=== PATIENT | female | born 1935 | race Caucasian/White ===

== ENCOUNTER 2020-04-15 12:12 | Day surgery (SDC) | payer MEDICARE ==
[2020-04-15] MEDS ORDERED: LIDOCAINE HCL 2% 100 MG/5 ML IJ ONE (12:13)
[2020-04-15] MEDS ORDERED: Depo-Medrol 40 MG/ML IM ONE (12:13)
[2020-04-15] MEDS ORDERED: DIPRIVAN 200 MG/20 ML IV ONE (13:47)
[2020-04-15] MEDS ORDERED: Ketamine HCl 50 MG/ML ONE (13:48)
--- NOTE | 2020-04-15 15:04 | XRAY ---
Indication: Bilateral L4-S1 MBB. Intraoperative fluoroscopy was provided 16 seconds. Single digital spot image submitted for interpretation demonstrates posterior needle tips projecting over the expected left and right L4-S1 nerve roots. Correlate with intraoperative findings/report.
--- NOTE | 2020-04-15 15:06 | XRAY ---
16 seconds of fluoroscopy was used in surgery for a bilateral L4-L5 and L5-S1 MBB.
[2020-04-15] MEDS ORDERED: Lactated Ringers 1,000 ML IV ONE (15:44)
== END 2020-04-15 14:15 | disposition home or self-care (01) ==
LOC: SDC-PAIN 12:12
PROVIDERS: ATTEND Psychiatry & Neurology Pain Medicine
DX: M47.816 Spondylosis without myelopathy or radiculopathy, lumbar region (principal); J44.9 Chronic obstructive pulmonary disease, unspecified; I10 Essential (primary) hypertension; I25.10 Atherosclerotic heart disease of native coronary artery without angina pectoris; F41.9 Anxiety disorder, unspecified; Z79.899 Other long term (current) drug therapy
CPT/HCPCS: 64493; 64494; 72020; 77002; J1030; J2704

== ENCOUNTER 2020-05-13 12:12 | Day surgery (SDC) | payer MEDICARE ==
[2020-05-13] MEDS ORDERED: Depo-Medrol 40 MG/ML IM ONE (12:13)
[2020-05-13] MEDS ORDERED: BUPIVACAINE 0.5% VIAL IJ ONE (12:13)
[2020-05-13] MEDS ORDERED: Ketamine HCl 50 MG/ML ONE ×2 (12:52→13:23)
[2020-05-13] MEDS ORDERED: DIPRIVAN 200 MG/20 ML IV ONE ×2 (12:52→13:23)
--- NOTE | 2020-05-13 15:06 | XRAY ---
Indication: Bilateral L4-S1 MBB. Intraoperative fluoroscopy was provided for 8 seconds. Single digital spot image submitted for interpretation demonstrates posterior needle tips projecting over the expected left and right L4-S1 nerve roots. Correlate with intraoperative findings/report.
[2020-05-13] MEDS ORDERED: Lactated Ringers 1,000 ML IV ONE (16:06)
--- NOTE | 2020-05-13 16:58 | XRAY ---
8 seconds fluoroscopy time in surgery for bilateral L4-S1 MBB.
== END 2020-05-13 13:40 | disposition home or self-care (01) ==
LOC: SDC-PAIN 12:12
PROVIDERS: ATTEND Psychiatry & Neurology Pain Medicine
DX: M47.816 Spondylosis without myelopathy or radiculopathy, lumbar region (principal); I10 Essential (primary) hypertension; J44.9 Chronic obstructive pulmonary disease, unspecified; I25.10 Atherosclerotic heart disease of native coronary artery without angina pectoris; Z79.899 Other long term (current) drug therapy; F41.8 Other specified anxiety disorders
CPT/HCPCS: 64493; 64494; 72020; 77002; J1030; J2704

== ENCOUNTER 2020-08-05 15:10 | Day surgery (SDC) | payer MEDICARE | END 2020-08-05 15:30 | disposition home or self-care (01) | LOC: SDC-PAIN 15:10 | PROVIDERS: ATTEND Psychiatry & Neurology Pain Medicine | DX: Z53.9 Procedure and treatment not carried out, unspecified reason (principal) ==

== ENCOUNTER 2020-08-26 10:44 | Day surgery (SDC) | payer MEDICARE ==
[2020-08-26] MEDS ORDERED: Depo-Medrol 40 MG/ML IM ONE (10:45)
[2020-08-26] MEDS ORDERED: BUPIVACAINE 0.5% VIAL IJ ONE (10:45)
[2020-08-26] MEDS ORDERED: Xylocaine 1% Vial 30 ML PF IJ ONE (10:45)
[2020-08-26] MEDS ORDERED: Ketamine HCl 50 MG/ML ONE (11:54)
[2020-08-26] MEDS ORDERED: DIPRIVAN 200 MG/20 ML IV ONE (11:54)
--- NOTE | 2020-08-26 12:52 | XRAY ---
Indication: Right L4-S1 RFA. Intraoperative fluoroscopy provided for 29 seconds. 4 digital spot images submitted for interpretation demonstrates posterior needle tips projecting over the expected right L4-S1 nerve roots. Correlate with intraoperative findings/report.
--- NOTE | 2020-08-26 13:00 | XRAY ---
29 seconds fluoroscopy time in surgery for right L4-S1 RFA.
[2020-08-26] MEDS ORDERED: Lactated Ringers 1,000 ML IV ONE (14:35)
== END 2020-08-26 12:47 | disposition home or self-care (01) ==
LOC: SDC-PAIN 10:44
PROVIDERS: ATTEND Psychiatry & Neurology Pain Medicine
DX: M47.816 Spondylosis without myelopathy or radiculopathy, lumbar region (principal); J44.9 Chronic obstructive pulmonary disease, unspecified; I10 Essential (primary) hypertension; F41.8 Other specified anxiety disorders; Z79.899 Other long term (current) drug therapy
CPT/HCPCS: 64635; 64636; 72100; 77002; 99100; J1030; J2001; J2704

== ENCOUNTER 2020-09-09 09:29 | Day surgery (SDC) | payer MEDICARE ==
[2020-09-09] MEDS ORDERED: Xylocaine 1% Vial 30 ML PF IJ ONE (09:30)
[2020-09-09] MEDS ORDERED: BUPIVACAINE 0.5% VIAL IJ ONE (09:30)
[2020-09-09] MEDS ORDERED: Depo-Medrol 40 MG/ML IM ONE (09:30)
[2020-09-09] MEDS ORDERED: DIPRIVAN 200 MG/20 ML IV ONE (10:03)
--- NOTE | 2020-09-09 10:47 | XRAY ---
Indication: Left L4-S1 RFA. Intraoperative fluoroscopy provided for 16 seconds. 3 digital spot images submitted for interpretation demonstrates posterior needle tips projecting over the expected left L4-S1 nerve roots. Correlate with intraoperative findings/report.
--- NOTE | 2020-09-09 11:29 | XRAY ---
16 seconds fluoroscopy time in surgery for left L4-S1 RFA.
[2020-09-09] MEDS ORDERED: Lactated Ringers 1,000 ML IV ONE (16:10)
== END 2020-09-09 10:40 | disposition home or self-care (01) ==
LOC: SDC-PAIN 09:29
PROVIDERS: ATTEND Psychiatry & Neurology Pain Medicine
DX: M47.817 Spondylosis without myelopathy or radiculopathy, lumbosacral region (principal); J44.9 Chronic obstructive pulmonary disease, unspecified; I10 Essential (primary) hypertension; I25.10 Atherosclerotic heart disease of native coronary artery without angina pectoris; F41.8 Other specified anxiety disorders; Z79.899 Other long term (current) drug therapy
CPT/HCPCS: 62323; 72100; 77002; J1030; J2001; J2704

== ENCOUNTER 2020-12-02 12:53 | Day surgery (SDC) | payer MEDICARE ==
[2020-12-02] MEDS ORDERED: Depo-Medrol 40 MG/ML IM ONE (12:54)
[2020-12-02] MEDS ORDERED: BUPIVACAINE 0.5% VIAL IJ ONE (12:54)
[2020-12-02] MEDS ORDERED: DIPRIVAN 200 MG/20 ML IV ONE (14:15)
[2020-12-02] MEDS ORDERED: Lactated Ringers 1,000 ML IV ONE ×2 (14:21→15:34)
--- NOTE | 2020-12-02 15:01 | XRAY ---
Indication: Bilateral SI joint injections. Intraoperative fluoroscopy provided for 21 seconds. 2 lateral digital spot images submitted for interpretation demonstrates posterior needle tips projecting over mid sacrum. Correlate with intraoperative findings/report.
--- NOTE | 2020-12-02 15:31 | XRAY ---
21 seconds fluoroscopy time in surgery for injections of both SI joints.
== END 2020-12-02 14:45 | disposition home or self-care (01) ==
LOC: SDC-PAIN 12:53
PROVIDERS: ATTEND Psychiatry & Neurology Pain Medicine
DX: M46.1 Sacroiliitis, not elsewhere classified (principal); J44.9 Chronic obstructive pulmonary disease, unspecified; I10 Essential (primary) hypertension; I25.10 Atherosclerotic heart disease of native coronary artery without angina pectoris; F41.9 Anxiety disorder, unspecified; Z79.899 Other long term (current) drug therapy
CPT/HCPCS: 27096; 72202; 77002; G0260; 99100; J1030; J2704

== ENCOUNTER 2021-01-06 12:16 | Day surgery (SDC) | payer MEDICARE ==
[2021-01-06] MEDS ORDERED: Sodium Chloride 0.9(Preservative Free) 10 ML IJ ONE (12:17)
[2021-01-06] MEDS ORDERED: Xylocaine 1% Vial 30 ML PF IJ ONE (12:17)
[2021-01-06] MEDS ORDERED: Depo-Medrol 40 MG/ML IM ONE (12:17)
[2021-01-06] MEDS ORDERED: DIPRIVAN 200 MG/20 ML IV ONE (13:58)
[2021-01-06] MEDS ORDERED: Lactated Ringers 1,000 ML IV ONE (16:36)
--- NOTE | 2021-01-06 16:36 | XRAY ---
Indication: Lumbar MATIAS. Intraoperative fluoroscopy provided for 24 seconds. 2 digital spot image submitted for interpretation demonstrates midline posterior needle tip projecting just posterior to L3-L4 interspace. Small amount of contrast injected for needle tip placement. Correlate with intraoperative findings/report.
--- NOTE | 2021-01-06 17:01 | XRAY ---
24 seconds fluoroscopy time in surgery for lumbar MATIAS.
== END 2021-01-06 15:00 | disposition home or self-care (01) ==
LOC: SDC-PAIN 12:16
PROVIDERS: ATTEND Psychiatry & Neurology Pain Medicine
DX: M54.16 Radiculopathy, lumbar region (principal); Z79.899 Other long term (current) drug therapy
CPT/HCPCS: 62323; 72100; 77003; J1030; J2001; J2704; Q9966

== ENCOUNTER 2021-06-23 09:28 | Day surgery (SDC) | payer MEDICARE ==
[2021-06-23] MEDS ORDERED: BUPIVACAINE 0.5% VIAL IJ ONE (09:29)
[2021-06-23] MEDS ORDERED: Depo-Medrol 40 MG/ML IM ONE (09:29)
[2021-06-23] MEDS ORDERED: DIPRIVAN 200 MG/20 ML IV ONE (11:30)
[2021-06-23] MEDS ORDERED: Lactated Ringers 1,000 ML IV ONE (13:13)
--- NOTE | 2021-06-23 13:29 | XRAY ---
Indication: Bilateral L4-S1 MBB. Intraoperative fluoroscopy provided for 18 seconds. Single digital spot image submitted for interpretation demonstrates posterior needle tips projecting over the expected left and right L4-S1 nerve roots. Correlate with intraoperative findings/report.
--- NOTE | 2021-06-23 13:42 | XRAY ---
18 seconds fluoroscopy time in surgery for bilateral L4-S1 MBB.
== END 2021-06-23 11:55 | disposition home or self-care (01) ==
LOC: SDC-PAIN 09:28
PROVIDERS: ATTEND Psychiatry & Neurology Pain Medicine
DX: M47.816 Spondylosis without myelopathy or radiculopathy, lumbar region (principal); J44.9 Chronic obstructive pulmonary disease, unspecified; I10 Essential (primary) hypertension; Z79.899 Other long term (current) drug therapy
CPT/HCPCS: 64493; 64494; 72020; 77002; J1030; J2704